=== PATIENT | male | born 1945 | race Caucasian/White ===

== ENCOUNTER → 2016-08-21 | Outpatient (CLI) | payer OTHER | LOC: MMPC 09:00 | DX: E78.00 Pure hypercholesterolemia, unspecified (principal); D17.0 Benign lipomatous neoplasm of skin and subcutaneous tissue of head, face and neck; E55.9 Vitamin D deficiency, unspecified; Z77.012 Contact with and (suspected) exposure to uranium | CPT/HCPCS: 99213; G0463 ==